=== PATIENT | male | born 1945 | race Caucasian/White ===

== ENCOUNTER 2020-05-30 15:53 | Emergency (ER) | payer MEDICARE ==
[~2020-05-30] VITALS: Ht 182.9 cm; Wt 124.3 kg
[~2020-05-30 15:53] MED LIST: ALLOPURINOL100 MG PO; CRESTOR20 MG PO; FENOGLIDE40 MG PO; FLEXERIL10 MG PO; GEMFIBROZIL600 MG PO; IBUPROFEN800 MG PO; LISINOPRIL10 MG PO; METFORMIN HCL1000 MG PO
[2020-05-30] MEDS ORDERED: FENOFIBRATE160 MG PO (16:05)
[2020-05-30] MEDS ORDERED: GLIMEPIRIDE2 MG PO (16:05)
[2020-05-30] MEDS ORDERED: CENTRUM SILVER1 EAC6 (16:06)
[2020-05-30] MEDS ORDERED: JANUMET 50-1,01 EACH PO (16:07)
[2020-05-30] MEDS ORDERED: LIPITOR20 MG PO (16:08)
--- NOTE | 2020-06-01 13:10 | EKG ---
[facility] [address] [facility] [place], [place] [address] Signed Sinus rhythm with 1st degree AV block Abnormal QRS-T angle, consider primary T wave abnormality Abnormal ECG No previous ECGs available Confirmed by ROMÁN LANDRY DO ([id number]) on 06/01/2020 1:10:48 PM Electronically Signed By: ROMÁN LANDRY DO 06/01/20 1310 PATIENT NAME: TRAE DERAS Electrocardiogram DATE OF : 49 PHYSICIAN: ROMÁN LANDRY DO REPORT #: [id number] REPORT IS CONFIDENTIAL AND NOT TO BE RELEASED WITHOUT AUTHORIZATION
== END 2020-05-30 19:43 | disposition home or self-care (01) ==
LOC: ED 15:53
DX: R41.0 Disorientation, unspecified (principal); M79.10 Myalgia, unspecified site; E11.9 Type 2 diabetes mellitus without complications; I10 Essential (primary) hypertension; E78.5 Hyperlipidemia, unspecified; Z87.891 Personal history of nicotine dependence; Z79.899 Other long term (current) drug therapy
CPT/HCPCS: 70450; 71045; 80053; 81001; 84484; 85025; 87502; 93005; 93010; 99285-25; C9803; G0480

== ENCOUNTER 2020-05-31 11:13 | Emergency (ER) | payer MEDICARE ==
[~2020-05-31] VITALS: Ht 182.9 cm; Wt 124.3 kg
[~2020-05-31 11:13] MED LIST changes: +CENTRUM SILVER1 EAC6; +FENOFIBRATE160 MG PO; +GLIMEPIRIDE2 MG PO; +JANUMET 50-1,01 EACH PO; +LIPITOR20 MG PO
--- OUTSIDE RECORDS SUMMARY | 2020-05-31 11:16 | XMS ---
PreManage Notification: TRAE DERAS Security Booking Supervisor Events No recent Security Events currently on file CRITERIA MET - [facility] - 2 Visits in 30 Days CARE PROVIDERS There are no care providers on record at this time. Brenda has no Care Guidelines for this patient. Patricia VISIT COUNT (12 MO.) [address] [facility] [address] [facility] [place] TOTAL 2 NOTE: Visits indicate total known visits. ED/C VISIT TRACKING (12 MO.) 05/31/2020 11:14 [facility] [place] TYPE: Emergency COMPLAINT: - ALTERED LOC 05/30/2020 15:56 [facility] [place] TYPE: Emergency COMPLAINT: - BODY/HEAD ACHE, LETHARGIC, ALTERED MENTAL STAUS INPATIENT VISIT TRACKING (12 MO.) No inpatient visits to display in this time frame [id number]
--- NOTE | 2020-06-01 13:11 | EKG ---
[facility] [address] [facility] [place], [place] [address] Signed Sinus rhythm with 1st degree AV block Abnormal QRS-T angle, consider primary T wave abnormality Abnormal ECG When compared with ECG of 30-MAY-2020 16:30, (Unconfirmed) No significant change was found Confirmed by ROMÁN LANDRY DO ([id number]) on 06/01/2020 1:11:31 PM Electronically Signed By: ROMÁN LANDRY DO 06/01/20 1311 PATIENT NAME: TRAE DERAS Electrocardiogram DATE OF : 49 PHYSICIAN: ROMÁN LANDRY DO REPORT #: [id number] REPORT IS CONFIDENTIAL AND NOT TO BE RELEASED WITHOUT AUTHORIZATION
== END 2020-05-31 19:08 | disposition short-term general hospital (02) ==
LOC: ED 11:13 → CCU 15:36 → ED 19:08
DX: A87.9 Viral meningitis, unspecified (principal); G93.40 Encephalopathy, unspecified; E11.9 Type 2 diabetes mellitus without complications; I10 Essential (primary) hypertension; E78.5 Hyperlipidemia, unspecified; Z87.891 Personal history of nicotine dependence; Z79.899 Other long term (current) drug therapy
CPT/HCPCS: 62270; 71045; 80053; 81001; 82945; 83605; 84157; 85025; 85032; 85651; 89051; 93005; 93010; 99285-25; J0133; J0290; J0696; J2250; J3370; J7060

== ENCOUNTER 2021-02-03 19:23 | Emergency (ER) | payer MEDICARE ==
[~2021-02-03] VITALS: Ht 182.9 cm; Wt 124.3 kg
--- NOTE | 2021-02-04 18:33 | EKG ---
[facility] [address] [facility] [place] [address] Signed Sinus rhythm with 1st degree AV block Low voltage QRS Borderline ECG When compared with ECG of 31-MAY-2020 11:42, Nonspecific T wave abnormality no longer evident in Inferior leads Confirmed by ANTONIO JAIN MD ([id number]) on 02/04/2021 6:33:13 PM Electronically Signed By: ANTONIO JAIN MD 02/04/211832 PATIENT NAME: TRAE DERAS Electrocardiogram DATE OF : 49 PHYSICIAN: ANTONIO JAIN MD REPORT #: [id number] REPORT IS CONFIDENTIAL AND NOT TO BE RELEASED WITHOUT AUTHORIZATION
== END 2021-02-03 23:50 | disposition home or self-care (01) ==
LOC: ED 19:23
DX: R55 Syncope and collapse (principal); I10 Essential (primary) hypertension; E11.9 Type 2 diabetes mellitus without complications; M10.9 Gout, unspecified; E78.5 Hyperlipidemia, unspecified; Z79.899 Other long term (current) drug therapy
CPT/HCPCS: 70450; 80053; 81001; 83735; 84484; 85025; 99284-25

== ENCOUNTER 2021-07-23 15:36 | Emergency (ER) | payer MEDICARE ==
[~2021-07-23] VITALS: Ht 182.9 cm; Wt 124.3 kg
[2021-07-23] MEDS ORDERED: CLOPIDOGREL75 MG PO (16:20)
[2021-07-23] MEDS ORDERED: HYDROCHLOROTH12.5 M1 PO (16:21)
[2021-07-23] MEDS ORDERED: POTASSIUM CHLO20 ME1 PO (16:21)
--- NOTE | 2021-07-25 16:30 | EKG ---
[facility] [address] [facility] [place] [address] Signed Sinus tachycardia with 1st degree AV block Otherwise normal ECG When compared with ECG of 03-FEB-2021 19:53, Vent. rate has increased BY 44 BPM Confirmed by ROMÁN LANDRY DO ([id number]) on 07/25/2021 4:30:01 PM Electronically Signed By: ROMÁN LADNRY DO 07/25/21 1630 PATIENT NAME: TRAE DERAS Electrocardiogram DATE OF : 49 PHYSICIAN: ROMÁN LANDRY DO REPORT #: [id number] REPORT IS CONFIDENTIAL AND NOT TO BE RELEASED WITHOUT AUTHORIZATION
== END 2021-07-23 19:43 | disposition home or self-care (01) ==
LOC: ED 15:36
DX: U07.1 COVID-19 (principal); E86.0 Dehydration; M10.9 Gout, unspecified; I10 Essential (primary) hypertension; E11.9 Type 2 diabetes mellitus without complications; E78.5 Hyperlipidemia, unspecified; Z79.899 Other long term (current) drug therapy; Z79.84 Long term (current) use of oral hypoglycemic drugs
CPT/HCPCS: 71045; 80053; 81001; 83605; 85025; 93005; 93010; 99284-25; J7030; M0243; Q0244

== ENCOUNTER 2021-07-25 12:54 | Emergency (ER) | payer MEDICARE ==
[~2021-07-25] VITALS: Ht 182.9 cm; Wt 124.3 kg
[~2021-07-25 12:54] MED LIST changes: +CLOPIDOGREL75 MG PO; +HYDROCHLOROTH12.5 M1 PO; +POTASSIUM CHLO20 ME1 PO
--- OUTSIDE RECORDS SUMMARY | 2021-07-25 13:02 | XMS ---
PreManage Notification: TRAE DERAS Security Manager Of Broadcast Content Events No recent Security Events currently on file CRITERIA MET - [facility] - 2 Visits in 30 Days CARE PROVIDERS There are no care providers on record at this time. Brenda has no Care Guidelines for this patient. Patricia VISIT COUNT (12 MO.) [address] [facility] [address] [place] TOTAL 3 NOTE: Visits indicate total known visits. ED/C VISIT TRACKING (12 MO.) 07/25/2021 12:54 [facility] [place] TYPE: Emergency COMPLAINT: - FLU SYMP 2021 15:37 [facility] [place] TYPE: Emergency COMPLAINT: - COLD SYMPTOMS 02/03/2021 19:23 [facility] [place] TYPE: Emergency COMPLAINT: - DIZZINESS DIAGNOSES: - Gout, unspecified - Essential (primary) hypertension - Other fdc (current) drug therapy - Dizziness and giddiness - Syncope and collapse - Type 2 diabetes mellitus without complications - Hyperlipidemia, unspecified INPATIENT VISIT TRACKING (12 MO.) No inpatient visits to display in this time frame [id number]
== END 2021-07-25 20:01 | disposition home or self-care (01) ==
LOC: ED 12:54
DX: U07.1 COVID-19 (principal); E86.0 Dehydration; E11.9 Type 2 diabetes mellitus without complications; I10 Essential (primary) hypertension; M10.9 Gout, unspecified; E78.5 Hyperlipidemia, unspecified; Z79.899 Other long term (current) drug therapy
CPT/HCPCS: 80048; 85025; 99284; J7030

== ENCOUNTER 2021-07-27 12:12 | Emergency (ER) | payer MEDICARE ==
[~2021-07-27] VITALS: Ht 182.9 cm; Wt 124.3 kg
--- OUTSIDE RECORDS SUMMARY | 2021-07-27 12:20 | XMS ---
PreManage Notification: TRAE DERAS Security Document Imaging Specialist Events No recent Security Events currently on file CRITERIA MET - [facility] - 2 Visits in 30 Days CARE PROVIDERS There are no care providers on record at this time. Brenda has no Care Guidelines for this patient. Patricia [facility] (12 MO.) [facility] NOTE: Visits indicate total known visits. ED/C VISIT TRACKING (12 MO.) 07/27/2021 12:[address] [facility] [place] TYPE: Emergency COMPLAINT: - DEHYDRATED 07/25/2021 12:54 [facility] [place] TYPE: Emergency COMPLAINT: - FLU SYMP 2021 15:37 [facility] TYPE: Emergency COMPLAINT: - COLD SYMPTOMS DIAGNOSES: - Other intermediate manager (current) drug therapy - Dehydration - Type 2 diabetes mellitus without complications - COVID-19 - intermodal dispatcher (current) use of oral hypoglycemic drugs - Hyperlipidemia, unspecified - Essential (primary) hypertension - COUGH, UNSPECIFIED - Gout, unspecified 02/03/2021 19:23 [facility] [place] TYPE: Emergency COMPLAINT: - DIZZINESS DIAGNOSES: - Gout, unspecified - Essential (primary) hypertension - Other chcf (current) drug therapy - Dizziness and giddiness - Syncope and collapse - Type 2 diabetes mellitus without complications - Hyperlipidemia, unspecified INPATIENT VISIT TRACKING (12 MO.) No inpatient visits to display in this time frame [id number]
[2021-07-27] MEDS ORDERED: HYDROCODON-ACE1 EA10 PO (16:57)
[2021-07-28] MEDS ORDERED: LISINOPRIL40 MG PO (16:44)
== END 2021-07-27 17:15 | disposition home or self-care (01) ==
LOC: ED 12:12
DX: U07.1 COVID-19 (principal); E86.0 Dehydration; E11.9 Type 2 diabetes mellitus without complications; M10.9 Gout, unspecified; I10 Essential (primary) hypertension; E78.5 Hyperlipidemia, unspecified; Z79.899 Other long term (current) drug therapy
CPT/HCPCS: 99283; J7030

== ENCOUNTER 2021-07-28 16:23 | Inpatient (IN) | payer MEDICARE ==
[~2021-07-28] VITALS: Ht 182.9 cm; Wt 114.0 kg
[~2021-07-28 16:23] MED LIST changes: +HYDROCODON-ACE1 EA10 PO
--- OUTSIDE RECORDS SUMMARY | 2021-07-28 16:32 | XMS ---
PreManage Notification: TRAE DERAS Security Under Baster Events No recent Security Events currently on file CRITERIA MET - - 2 Visits in 30 Days CARE PROVIDERS There are no care providers on record at this time. Brenda has no Care Guidelines for this patient. Patricia [facility] NOTE: Visits indicate total known visits. ED/C VISIT TRACKING (12 MO.) [facility]21 16[facility] [place] [facility] COMPLAINT: - LOW O2 SATS, DEHYDRATED 07/27/2021 12:13 [facility] [place] TYPE: Emergency COMPLAINT: - DEHYDRATED 07/25/2021 12:54 [facility] [place] TYPE: Emergency COMPLAINT: - FLU SYMP DIAGNOSES: - COVID-19 - Essential (primary) hypertension - Diarrhea, unspecified - Gout, unspecified - Type 2 diabetes mellitus without complications - Other half-way (current) drug therapy - Hyperlipidemia, unspecified - Dehydration 2021 15:37 [facility] [place] TYPE: Emergency COMPLAINT: - COLD SYMPTOMS DIAGNOSES: - Other half-way (current) drug therapy - Dehydration - Type 2 diabetes mellitus without complications - COVID-19 - ocean transportation intermediary (current) use of oral hypoglycemic drugs - Hyperlipidemia, unspecified - Essential (primary) hypertension - COUGH, UNSPECIFIED - Gout, unspecified 02/03/2021 19:[address] [facility] [address] [facility] [place] TYPE: Emergency COMPLAINT: - DIZZINESS DIAGNOSES: - Gout, unspecified - Essential (primary) hypertension - Other half-way (current) drug therapy - Dizziness and giddiness - Syncope and collapse - Type 2 diabetes mellitus without complications - Hyperlipidemia, unspecified INPATIENT VISIT TRACKING (12 MO.) No inpatient visits to display in this time frame [id number]
[2021-07-28] MEDS ORDERED: LISINOPRIL40 MG PO (16:44)
--- NOTE | 2021-07-28 19:00 | NUR ---
TELEPHONE REPORT RECEIVED FROM ED ODESSA RAMIREZ, ALL QUESTIONS ANSWERED. AWAITING pt's ARRIVAL TO FLOOR. INFORMED ODESSA RAMIREZ, STAFF WILL PHOTOGRAPH INSPECTOR pt AFTER SHIFT REPORT AND WILL CALL ED STAFF BEFORE GETTING pt.
--- NOTE | 2021-07-28 20:48 | NUR ---
ASSESSMENT COMPLETE, SCHEDULED MEDS GIVEN (SEE EMAR). EDUCATION REGARDING MEDICATION VERBALLY PROVIDED AND VERBAL AND WRITTEN PRONING EDUCATION ALSO GIVEN, pt VERBALIZED UNDERSTANDING. VSS, 2LNC IN PLACE. CPOX ON, SPO2 LOW TO MID 90'S. pt A/OX4, DENIES PAIN. REPORTS SOME ABD DISCOMFORT R/T DIARRHEA EARLIER, REPORTED TAKING IMODIUM AT HOME AT THAT IT "REALLY HELPED". pt DENIES SOB AT REST. BSC AND URINAL AT BEDSIDE. PERSONAL BELINGINGS IN REACH ALNG WITH CALL LIGHT, NO FURTHER NEEDS. IV SITE WNL, FLUIDS INFUSING DIRECTED. LUNG SOUNDS CLEAR, SOMEWHAT DIMINISHED IN LOWER LOBES. PATIENT ACCESS REGISTRARODESSA GARCIA REMAINS IN ROOM TO COMPLETE ADMIT.
--- NOTE | 2021-07-28 21:00 | NUR ---
PT ADMITTED TO ROOM 110 FROM ED, PER CRISTIAN @2022 2 L O2, NOT CHRONIC, SAT IN MID 90'S. SELF TRANSFERED FROM STRETCHER TO BED, WITH ASSIST, NOTED INCREASE OF SOB ON EXERTION. 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 PT HAS BEEN SICK SINCE JUL 19; UNVACCINATED, C/O NOT BEING ABLE TO SLEEP AT NIGHT, WELL FREQUENT LOOS STOOLS, WHICH HE TOOK MEDICATION THIS AM TO STOP THE BM'S, STATED IT HELPED. HAS NOT BEEN EATING, SAYS HE HAS LITTLE TO NO APPETITE, DRINKING GATOR, WATER AT HOME. EXPLAINED CALL LIGHT, HOW TO SHUT LIGHTS OFF, HE HOPES TO BE ALBE TO SLEEP BETTER TONIGHT, STATING HE DOES FEEL BETTER THAN HE DID PRIOR TO COMING TO ED.
--- NOTE | 2021-07-28 23:46 | NUR ---
pt RESTING IN BED, RR EVEN AND UNLABORED AND CURRENTLY ON HIS LEFT SIDE FACING WINDOW. CPOX IN PLACE, SPO2 94% ON 2LNC. NO DISTRESS NOTED, CALL LIGHT IN REACH.
--- NOTE | 2021-07-29 01:56 | NUR ---
ASSISTED PT TO BSC, PT C/O FEELING COLD AND WET FROM SWEAT, CHANGED LINEN, VS DONE, I/O DONE WITH RN AT BEDSIDE. PT LYING SEMI PRONE, CALL LIGHT WITHIN REACH, NO FURTHER ASSISTANCE NEEDED AT THIS TIME.
--- NOTE | 2021-07-29 02:04 | NUR ---
assessment complete, no scheduled meds at this time. pt up sba to void via bsc, 600mls concentrated yellow output noted. iv fluids infusing as directed, site wnl. vss, sbp 98, will monitor. pt denies dizziness and lightheadedness. pharmacist in charge jose aware. pt sweaty in bed, prn accucheck complete, result of 169. bed change complete, pt afebrile. no further needs, pt in semiprone position, unable to fully prone at this time. will continue to monitor and encourage proning prosition as tolerated by pt, spo2 96% on 2lnc. call light in [facility].
--- NOTE | 2021-07-29 04:44 | NUR ---
IV PUMP ALARMING, NEW BAG IV FLUIDS HUNG AND INFUSING DIRECTED. IV SITE WNL. pt REMAINS AFEBRILE, ORAL TEMP OF 97.4. CALL LIGHT IN REACH. NO FURTHER NEEDS, CALL LIGHT IN REACH.
--- NOTE | 2021-07-29 06:36 | NUR ---
IN ROOM TO ROUND ON pt, pt RESTING IN BED. BP RESULT OF 95/53, MAP OF 63. HR 63. pt DENEIS NEED TO VOID, ASYMPTOMATIC. pt DENIES DIZZINESS OR LIGHTHEADEDNESS. MESSAGE SENT TO MD LANDRY REGARDING BP. ELECTRICAL MAINTENANCE ENGINEERODESSA GARCIA UPDATED. pt DENEIS FURTHER NEEDS, CALL LIGHT IN REACH. IV SITE WNL, FLUIDS INFUSING DIRECTED.
--- NOTE | 2021-07-29 07:30 | NUR ---
Report recieved from nightclub manager RN, pt resting in bed in bed on cpoc 94% on 2L nc, call light within reach no other needs at the moment
--- NOTE | 2021-07-29 08:30 | NUR ---
RN IN ROOM TO DO MONRING ASSESSMENT AND VITAL SIGNS PT SITTING IN BE lr BOLUS STARTED PER MD ORDER, ASSISTED UP TO THE BED SIDE COMMODE, ABLE TO VOID 700, ON 2L NC, DENIES CHEST PAIN OR SOB AT THE MOMENT, MORNING MEDICATIONS GIVEN, HELPED DIAL PT DAUGHTER IN LAW ON THE PHONE SO HE COULD VISIT, NO OTHER NEEDS AT THE MOMENT
[2021-07-29] MEDS ORDERED: ALLOPURINOL300 MG PO (09:21)
--- NOTE | 2021-07-29 09:23 | NUR ---
MED REC COMPLETED BY PHARMACY
--- NOTE | 2021-07-29 09:28 | NUR ---
NOTIFUED OF CRITICAL VALUE LACTIC ACID 2.6 AT NURSES STATION
--- NOTE | 2021-07-29 09:30 | NUR ---
Spoke with pt. He lives in [place] in a 1 story home with 1 step. He is and lives alone. He has adult children who help and grand kids that clean his house for him. He cooks and shops for himself. Uses a [employer] and denies need for other DME. He is on 02 2l and we discussed which DME and how it works for 02. Pt states he is seen by ÓSCAR Ford. I have not heard of this provided. Will call and check with Zulay. Pt pplans on dc to home when discharged, family will assist.
--- NOTE | 2021-07-29 09:45 | NUR ---
RN IN ROOM TO HANG IV REDEMSIVER, PER PHARMACY HOLD LR AT THE MOMENT TO RUN MEDICATION
--- NOTE | 2021-07-29 12:12 | NUR ---
PT SON ALIDA CALLED AND UODATED ON PT STATUS
--- NOTE | 2021-07-29 12:50 | NUR ---
rn in room to hang iv abx, lunch tray delivered denies any needs
--- NOTE | 2021-07-29 12:52 | EKG ---
[facility] [address] [facility] [place] [address] Signed Sinus rhythm with 1st degree AV block with fusion complexes Otherwise normal ECG When compared with ECG of 23-JUL-2021 16:24, fusion complexes are now present Vent. rate has decreased BY 47 BPM Confirmed by ROMÁN LANDRY DO ([id number]) on 07/29/2021 12:51:54 PM Electronically Signed By: ROMÁN LANDRY DO 07/29/21 1252 PATIENT NAME: TRAE DERAS Electrocardiogram DATE OF : 49 PHYSICIAN: ROMÁN LANDRY DO REPORT #: [id number] REPORT IS CONFIDENTIAL AND NOT TO BE RELEASED WITHOUT AUTHORIZATION
--- NOTE | 2021-07-29 13:14 | NUR ---
Called and spoke Zulay at [facility]. Pt is scheduled to see Dr Grady Wolf in September. She moved appt up to Aug 06 [phone].
--- NOTE | 2021-07-29 13:15 | NUR ---
RN IN ROOM TO HELP PT UP TO THE CHAIR ABLE TO GET UP TO THE RECLINER SBA, TOLERATED WELL, CALL LIGHT WITH IN REACH INSTTUCTED NOT TO GET UP WITHOUT HELP.
--- NOTE | 2021-07-29 14:25 | NUR ---
UNABLE TO VISIT DUE TO PRECAULTIONS. WILL FOLLOW
--- NOTE | 2021-07-29 15:40 | NUR ---
RN ON ROOM TO ROUND PN PT, HE IS UP IN CHAIR DENIES ANY PAIN OR SOB REMAINS ON 1L NC.
--- NOTE | 2021-07-29 18:20 | NUR ---
RN in room to help pt back to bed able to stay up in the chair most of the afternoon, used bsc to void, educated to use call light if he needs to get up no other needs at the moment
--- NOTE | 2021-07-29 19:05 | NUR ---
SHIFT REPORT RECEIVED FROM DAYSHIFT ODESSA BUI AT BEDSIDE. pt AWAKE AND RESTING IN BED, WATCHING TV. DENIES NEEDS OR CONCERNS. CPOX IN PLACE, 1LNC. SPO2 92%, RR EVEN AND UNLABORED. CALL LIGHT IN REACH.
--- NOTE | 2021-07-29 20:50 | NUR ---
ASSESSMENT COMPLETE, VSS. pt AWAKE AND RESTING IN BED. CPOX IN PLACE, 1LNC REMAINS ON. pt DENIES PAIN. OCCASIONAL NONPRODUCTIVE COUGH NOTED, pt DECLINES PRN COUGH MEDICATION. RT YESY IN ROOM WITH pt, CALL LIGHT IN REACH.
--- NOTE | 2021-07-29 23:16 | NUR ---
pt AWAKE AND RESTING IN BED, 1LNC IN PLACE. SPO2 93%, RR EVEN AND UNLABORED. NO DISTRESS NOTED. NO NEEDS VERBALIZED, CALL LIGHT IN REACH.
--- NOTE | 2021-07-29 23:50 | NUR ---
GILMER JAMES IN ROOM AND COLLECTED ORDERED URINE SAMPLE AND SENT TO LAB. IV SITE WNL, FLUIDS INFUSING DIRECTED. pt HAD 300MLS OUTPUT. NO FURTHER NEEDS, CALL LIGHT IN REACH.
--- NOTE | 2021-07-30 03:22 | NUR ---
ROUNDED ON pt, pt AWAKE AND RESTING IN BED. REPORTS RECENTLY SLEEPING IN SEMIPRONE POSITION. pt VERBALLY EDUCATED ON THE BENEFITS OF PRONING, pt VERBALIZED UNDERSTANDING. ASSESSMENT COMPLETE, pt DECLINED COUGH MEDICATION. IV SITE WNL. CALL LIGHT IN REACH.
--- NOTE | 2021-07-30 07:02 | NUR ---
pt UP TO VOID, 500MLS OUTPUT NOTED. IV SITE WNL, FLUIDS INFUSING DIRECTED. CALL LIGHT IN REACH, NO FURTHER NEEDS.
--- NOTE | 2021-07-30 07:30 | NUR ---
report recieved from warehouse worker 2nd shift RN, pt resting in bed on cpoc, 0.5L nc 92%, call light within reach no needs at the moment
[2021-07-30] MEDS ORDERED: VENTOLIN HFA18 GM INH (10:22)
[2021-07-30] MEDS ORDERED: DEXAMETHASONE6 MG PO (10:26)
[2021-07-30] MEDS ORDERED: BENZONATATE100 MG PO (10:26)
[2021-07-30] MEDS ORDERED: CEFDINIR300 MG PO (10:27)
--- NOTE | 2021-07-30 11:10 | NUR ---
HOME O2 QUALIFIER, FACESHEET AND DISCHARGE SUMMARY FAXED TO [facility] PER PATIENT REQUEST.
--- NOTE | 2021-07-30 11:21 | NUR ---
RN IN ROOM TO HELP PT BACK TO BED FROM THE CHAIR. UPDATED ON DC PLANNING
--- NOTE | 2021-07-30 11:32 | NUR ---
SPOKE WITH ONEYDA AT [facility] REGARDING HOME O2 ORDER. ONEYDA STATES HE WILL CHECK FOR THE ORDER AND BEGIN PROCESSING.
--- NOTE | 2021-07-30 12:43 | NUR ---
RN IN ROOM TO ADMINISTER LUNCH TIME INSULIN, PT SITTING IN BED EATING LUNCH,STARTED IV ABX NO OTHER NEEDS
== END 2021-07-30 13:50 | disposition home or self-care (01) | DRG 177 ==
LOC: ED 16:23 → MS 18:30
PROVIDERS: ADMIT Student in an Organized Health Care Education/Training Program; ATTEND Student in an Organized Health Care Education/Training Program
PROC: 3E0333Z Introduction of Anti-inflammatory into Peripheral Vein, Percutaneous Approach (ICD-10-PCS; principal; 2021-07-28)
PROC: XW033E5 Introduction of Remdesivir Anti-infective into Peripheral Vein, Percutaneous Approach, New Technology Group 5 (ICD-10-PCS; 2021-07-28)
DX: U07.1 COVID-19 (principal); J12.82 Pneumonia due to coronavirus disease 2019; J96.01 Acute respiratory failure with hypoxia; E87.2 Acidosis; E11.9 Type 2 diabetes mellitus without complications; I10 Essential (primary) hypertension; E79.0 Hyperuricemia without signs of inflammatory arthritis and tophaceous disease; I44.0 Atrioventricular block, first degree; G47.00 Insomnia, unspecified; E78.5 Hyperlipidemia, unspecified; M10.9 Gout, unspecified; I25.2 Old myocardial infarction; Z90.49 Acquired absence of other specified parts of digestive tract
CPT/HCPCS: 36600; 71045; 80053; 81001; 82010; 82803; 83605; 84484; 85025; 93005; 93010; 94640; 94667; 94760; 94761; 94762; 96374; 96375; 99285-25; A9270; J0696; J1100; J1650; J1815; J7030; J7050; J7121; J8540

== ENCOUNTER 2025-05-12 13:03 | Emergency (ER) | payer MEDICARE ==
[~2025-05-12] VITALS: Ht 182.9 cm; Wt 116.0 kg
[~2025-05-12 13:03] MED LIST changes: +ALLOPURINOL300 MG PO; +BENZONATATE100 MG PO; +CEFDINIR300 MG PO; +DEXAMETHASONE6 MG PO; +LISINOPRIL40 MG PO; +VENTOLIN HFA18 GM INH
[2025-05-12 16:01] LABS: BASOPHILS 0.6 % (0.2-1.2); EOSINOPHILS 2.9 % (0.8-7.0); LYMPHOCYTES 31.1 % (21.8-53.1); MCH 29.9 PG (25.7-32.2); MCHC 32.4 g/dL (32.3-36.5); MCV 92.1 fL (79.0-92.2); MONOCYTES 10.9 % (5.3-12.2); NEUTROPHILS 54.3 % (34.0-67.9); RBC 4.05 M/uL (4.63-6.08)
[2025-05-12 16:23] LABS: ALT (SGPT) 26.0 U/L (14-59); AST (SGOT) 25.0 U/L (15-37); GLOMERULAR FILTRATION RATE,EST 78.0 mL/min (>60); PROTEIN, TOTAL 7.8 g/dL (6.4-8.2); UREA NITROGEN 29.0 mg/dL (7-18)
[2025-05-12 18:30] VITALS: BP 122/67
== END 2025-05-12 18:31 | disposition home or self-care (01) ==
LOC: ED 13:03
PROVIDERS: Emergency Medicine
DX: M27.8 Other specified diseases of jaws (principal); I10 Essential (primary) hypertension; E11.9 Type 2 diabetes mellitus without complications; E78.5 Hyperlipidemia, unspecified
CPT/HCPCS: 36415; 70491; 80053; 85025; 99284-25; Q9967

== ENCOUNTER 2025-05-20 11:48 | Inpatient (IN) | payer MEDICARE ==
[~2025-05-20] VITALS: Ht 182.9 cm; Wt 116.0 kg
[2025-05-20] VITALS (8 sets, daily range): BP systolic 124–144; BP diastolic 59–74
[~2025-05-20 11:48] MED LIST changes: -CENTRUM SILVER1 EAC6; +CENTRUM SILVER1 EAC9 PO; -POTASSIUM CHLO20 ME1 PO; +POTASSIUM GLUCO99 MG PO
--- OUTSIDE RECORDS SUMMARY | 2025-05-20 11:55 | XMS ---
PreManage Notification: TRAE DERAS Security Airfield Manager Events No recent Security Events currently on file CRITERIA MET - [facility] - 2 Visits in 30 Days CARE PROVIDERS There are no care providers on record at this time. Brenda has no Care Guidelines for this patient. Patricia V[facility] (12 MO.) [facility] T[facility] 2 NOTE: Visits indicate total known visits. ED/C VISIT TRACKING (12 MO.) 05/20/2025 11:[address] [facility] [address] [place] TYPE: Emergency COMPLAINT: - UPPER ABD PAIN 05/12/2025 13:04 [facility] [place] TYPE: Emergency COMPLAINT: - NECK SWELLING DIAGNOSES: - Essential (primary) hypertension - Hyperlipidemia, unspecified - Localized swelling, mass and lump, head - Other specified diseases of jaws - Type 2 diabetes mellitus without complications INPATIENT VISIT TRACKING (12 MO.) No inpatient visits to display in this time frame [id number]
[2025-05-20 12:12] LABS: BASOPHILS 0.4 % (0.2-1.2); EOSINOPHILS 1.4 % (0.8-7.0); LYMPHOCYTES 18.4 % (21.8-53.1); MCH 30.0 PG (25.7-32.2); MCHC 32.7 g/dL (32.3-36.5); MCV 91.7 fL (79.0-92.2); MONOCYTES 7.1 % (5.3-12.2); NEUTROPHILS 72.1 % (34.0-67.9); RBC 4.33 M/uL (4.63-6.08)
[2025-05-20] MEDS ORDERED: VITAMIN D325 MC2 PO (12:12)
[2025-05-20] MEDS ORDERED: MAGNESIUM100 MG PO (12:13)
[2025-05-20 12:28] LABS: ALT (SGPT) 24.0 U/L (14-59); AST (SGOT) 19.0 U/L (15-37); GLOMERULAR FILTRATION RATE,EST 80.0 mL/min (>60); PROTEIN, TOTAL 7.9 g/dL (6.4-8.2); UREA NITROGEN 17.0 mg/dL (7-18)
[2025-05-20] MEDS ORDERED: PIPERACILLIN/TAZOBACTAM 4.5 GM in SODIUM CHLORIDE 0.9% 100 ML IV ONE (14:30)
[2025-05-20] MEDS ORDERED: SODIUM CHLORIDE 0.9% 1,000 ML IV SCH ×2 (15:45)
[2025-05-20] MEDS ORDERED: MORPHINE SULFATE 4 MG/ML VIAL IV PRN ×2 (15:45)
[2025-05-20] MEDS ORDERED: SEVOFLURANE 250 ML BTL INH ONE (15:56)
[2025-05-20] MEDS ORDERED: DEXAMETHASONE SOD PHOS 4 MG/ML VIAL ONE (16:58)
[2025-05-20] MEDS ORDERED: fentaNYL citrate 100 MCG/2 ML VIAL ONE (16:58)
[2025-05-20] MEDS ORDERED: ACETAMINOPHEN 1,000 MG/100 ML VIAL ONE (16:59)
[2025-05-20] MEDS ORDERED: MAGNESIUM SULFATE 1 GM/2 ML VIAL ONE (16:59)
[2025-05-20] MEDS ORDERED: ROCURONIUM BROMIDE 50 MG/5 ML SYR ONE ×2 (16:59→19:04)
[2025-05-20] MEDS ORDERED: LIDOCAINE HCL 2% 5 ML SDV ONE (16:59)
[2025-05-20] MEDS ORDERED: SUCCINYLCHOLINE IN 0.9% NACL 200 MG/10 ML SYRINGE ONE (16:59)
[2025-05-20] MEDS ORDERED: BUPIVACAINE HCL 0.5% 30 ML VIAL ONE (18:03)
[2025-05-20] MEDS ORDERED: LIDOCAINE HCL 2% 20 ML MDV ONE (18:04)
[2025-05-20] MEDS ORDERED: LIDOCAINE HCL 1% 30 ML SDV ONE (18:18)
[2025-05-20] MEDS ORDERED: NALOXONE HCL 0.4 MG SYR IV PRN (19:45)
[2025-05-20] MEDS ORDERED: IBLOOD GLUCOSE TEST STRIP 1 EA TEST VI PRN (19:45)
[2025-05-20] MEDS ORDERED: fentaNYL citrate 50 MCG/ML SDV IV PRN (19:45)
[2025-05-20] MEDS ORDERED: KETOROLAC TROMETHAMINE 30 MG/ML VIAL IV PRN (19:45)
[2025-05-20] MEDS ORDERED: HYDROmorphone HCL 1 MG/ML SYR IV PRN (19:45)
[2025-05-20] MEDS ORDERED: SUGAMMADEX SODIUM 200 MG/2 ML ML ONE (19:51)
[2025-05-20] MEDS ORDERED: HYDROCODONE/ACETA 5/325 TAB PO PRN ×2 (20:15)
[2025-05-20] MEDS ORDERED: PIPERACILLIN/TAZOBACTAM 4.5 GM in DEXTROSE 5% 100 ML IV SCH ×2 (22:00)
[2025-05-21] VITALS (10 sets, daily range): BP systolic 106–124; BP diastolic 46–70
[2025-05-21] MEDS ORDERED: HYDROCODONE/ACETA 5/325 TAB PO PRN ×2 (06:30)
--- NOTE | 2025-05-21 21:17 | EKG ---
[facility] [address] [facility] [place] [address] Signed Sinus rhythm with 1st degree AV block Left axis deviation Right bundle branch block Abnormal ECG When compared with ECG of 28-JUL-2021 16:36, fusion complexes are no longer present Right bundle branch block is now present Confirmed by Elena Culver MD () on 05/21/2025 9:17:37 PM Electronically Signed By: ELENA CULVER MD 05/21/25 2117 PATIENT NAME: TRAE DERAS Electrocardiogram DATE OF : 49 PHYSICIAN: ELENA CULVER MD REPORT #: [id number] REPORT IS CONFIDENTIAL AND NOT TO BE RELEASED WITHOUT AUTHORIZATION
[2025-05-21] MEDS ORDERED: HEParin SOD (PORCINE) 5,000 UNIT/ML SDV SUB-Q SCH ×2 (22:00)
[2025-05-22 04:45] VITALS: BP 126/65
[2025-05-22 07:15] VITALS: BP 126/65
[2025-05-22] MEDS ORDERED: LISINOPRIL40 MG PO (08:59)
[2025-05-22] MEDS ORDERED: PIOGLITAZONE HC15 MG PO (09:01)
[2025-05-22] MEDS ORDERED: ESCITALOPRAM OXA5 MG PO (09:02)
[2025-05-22] MEDS ORDERED: METOPROLOL SUCC50 MG PO (09:02)
[2025-05-22] MEDS ORDERED: VENTOLIN HFA18 GM INH (09:22)
[2025-05-22] MEDS ORDERED: JANUMET XR 50-1 EAC1 PO (09:24)
[2025-05-22] MEDS ORDERED: CLOPIDOGREL75 MG PO (09:24)
[2025-05-22 09:49] VITALS: BP 113/57
[2025-05-22 09:50] VITALS: BP 113/57
[2025-05-22] MEDS ORDERED: HYDROCODON-ACE1 EA10 PO (12:52)
[2025-05-22 13:50] VITALS: BP 139/75
[2025-05-22 14:02] VITALS: BP 139/75
--- NOTE | 2025-05-23 12:51 | PATH ---
[facility] [address] [place], [place] [address] Signed SPECIMEN(S): A GALLBLADDER WITH STONES SPECIMEN SOURCE: A. GALLBLADDER WITH STONES CLINICAL HISTORY: Cholelithiasis. 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 NA MICROSCOPIC EXAMINATION: Histologic sections of all submitted blocks are examined by light microscopy. These findings, together with the gross examination, support the pathologic diagnosis. GROSS DESCRIPTION: The specimen, labeled and designated "Celia Dersa " and designated on the requisition "gallbladder and stones," is received in formalin and consists of Specimen: Previously opened gallbladder. Dimensions: 11.6 x 4.5 x 2.0 cm. Serosa: Violaceous and smooth. Cystic Duct: Inked, unobstructed. Calculi: 2 black firm calculi that measure 1.6 cm and 2.3 cm in greatest dimension. Mucosa: [place] and velvety with yellow flecking. Wall thickness: 0.3 cm. Lymph node: No pericystic lymph nodes are grossly identified. Additional: None. Soccer Commentator sections are submitted in (A1). FB (under the direct supervision of a pathologist) The Gross Description was prepared using a voice recognition system. The report was reviewed for accuracy; however, sound-alike word errors, addition and/or deletions may occur. If there is any question about this report, please contact Client Services. ADDITIONAL NOTES: Immunohistochemical and/or in situ hybridization studies if performed in this case included appropriate positive controls that reacted as expected. This PATIENT NAME: TRAE DERAS PATHOLOGY DATE OF : 49 REPORT #: [id number] PHYSICIAN: BEN HARRIS PCP: OBI SCHULTE MD REPORT IS CONFIDENTIAL AND NOT TO BE RELEASED WITHOUT AUTHORIZATION [facility] [address] [place] [id number] Signed test was developed and its performance characteristics determined by [facility]. It has not been cleared or approved by the U.S. Food and Drug Administration. The FDA has determined that such clearance or approval is not necessary. This test is used for clinical purposes. It should not be regarded as investigational or for research. [facility] is certified under the Clinical Laboratory Improvement Amendments of 1988 (CLIA) as qualified to perform high complexity clinical laboratory testing. PERFORMING LABORATORY: Technical component was performed by [facility], [address] [place] [address] (CLIA# [id number]). Professional interpretation was performed by [facility], [address] [place] [address] (CLIA#: [id number]). Diagnostician: Blu Crabtree MD Pathologist Electronically Signed 05/23/2025 Copies: ~ PATIENT NAME: TRAE DERAS PATHOLOGY DATE OF : 49 REPORT #: [id number] PHYSICIAN: BEN PATHOLOGY PCP: OBI SCHULTE MD REPORT IS CONFIDENTIAL AND NOT TO BE RELEASED WITHOUT AUTHORIZATION
== END 2025-05-22 13:45 | disposition home or self-care (01) | DRG 419 ==
LOC: ED 11:48 → MS 15:37
PROVIDERS: Emergency Medicine; ADMIT Surgery; ATTEND Surgery
PROC: BF52200 Other Imaging of Gallbladder using Fluorescing Agent, Indocyanine Green Dye, Intraoperative (ICD-10-PCS; 2025-05-20)
PROC: 3E03329 Introduction of Other Anti-infective into Peripheral Vein, Percutaneous Approach (ICD-10-PCS; 2025-05-20)
PROC: 0FT44ZZ Resection of Gallbladder, Percutaneous Endoscopic Approach (ICD-10-PCS; principal; 2025-05-20 17:43)
DX: K80.00 Calculus of gallbladder with acute cholecystitis without obstruction (principal); I10 Essential (primary) hypertension; M10.9 Gout, unspecified; E11.9 Type 2 diabetes mellitus without complications; I45.10 Unspecified right bundle-branch block; I44.0 Atrioventricular block, first degree; I25.10 Atherosclerotic heart disease of native coronary artery without angina pectoris; E78.00 Pure hypercholesterolemia, unspecified; Z86.74 Personal history of sudden cardiac arrest; Z90.49 Acquired absence of other specified parts of digestive tract; Z79.84 Long term (current) use of oral hypoglycemic drugs; Z79.899 Other long term (current) drug therapy
CPT/HCPCS: 00790; 36415; 76705; 80053; 83690; 85025; 93005; 93010; 94761; 94762; 94799; 96365; 96375; 99285-25; J0131; J0330; J1100; J1644; J1885; J2003; J2270; J2405; J2543; J3010; J3475; J3490; J7030